=== PATIENT | female | born 1940 ===

== ENCOUNTER 2016-02-24 11:49 | Outpatient (CLI) | payer MEDICARE ==
--- NOTE | 2016-02-25 08:17 | RAD ---
LEFT RIBS 3 VIEWS: CHEST 1 VIEW: HISTORY: Fall. Chest wall injury. FINDINGS: No displaced rib fracture or pneumothorax are apparent. The cardiac silhouette and pulmonary vascul ature are unremarkable. Lungs are hyperinflated. Mediastinum is midline. IMPRESSION: Chronic obstructive pulmonary disease. POS: [facility]
== END 2016-02-24 11:50 | disposition home or self-care (01) ==
LOC: NAV RAD 11:49
PROVIDERS: ATTEND Internal Medicine
DX: S20.212A Contusion of left front wall of thorax, initial encounter (principal); J44.9 Chronic obstructive pulmonary disease, unspecified